=== PATIENT | male | born 1980 | race Two or more races ===

== ENCOUNTER 2022-08-03 07:42 | Emergency (ER) | payer OTHER ==
[2022-08-03] MEDS ORDERED: SODIUM CHLORIDE 0.9% 500 ML INFUS.BAG IV ONE ×2 (07:47→08:44)
[2022-08-03 07:52] VITALS: BP 129/94; PULSE 102; RESP 20; TEMP 97.9; BMI 29.2
[2022-08-03 09:19] LABS: ALBUMIN 4.2 g/dl (3.4-5.0); BILIRUBIN,TOTAL 0.5 mg/dl (0.2-1); CALCIUM 8.8 mg/dl (8.5-10); CREATININE 0.9 mg/dl (0.55-1.3); TOT PROT 7.6 g/dl (6.4-8.2)
== END 2022-08-03 09:49 | disposition home or self-care (01) ==
LOC: FER 07:42
DX: K52.9 Noninfective gastroenteritis and colitis, unspecified (principal)
CPT/HCPCS: 36415; 80053; 99283-25